=== PATIENT | female | born 1955 | race Caucasian/White ===

== ENCOUNTER → 2018-12-21 | Outpatient (CLI) | payer MEDICAID | LOC: CIMAGING 14:04 | PROVIDERS: ATTEND Internal Medicine Pulmonary Disease | DX: J43.1 Panlobular emphysema (principal); J96.11 Chronic respiratory failure with hypoxia; E78.5 Hyperlipidemia, unspecified; E27.9 Disorder of adrenal gland, unspecified; M47.815 Spondylosis without myelopathy or radiculopathy, thoracolumbar region; M41.84 Other forms of scoliosis, thoracic region | CPT/HCPCS: 36415-PO; 71250-PO ==

== ENCOUNTER → 2019-05-06 | Outpatient (CLI) | payer OTHER | LOC: FIMAGING 15:52 ==